=== PATIENT | male | born 1935 | race African-American/Black ===

== ENCOUNTER 2021-02-10 16:36 | Inpatient (IN) | payer MEDICARE ==
[~2021-02-10] VITALS: Ht 185.4 cm; Wt 85.8 kg
--- NOTE | 2021-02-10 16:50 | PHYS DOC ---
Past Medical History Past Medical History: Dementia, Hypertension General Adult HPI: HPI: Patient is a 85 year old man with history of dementia, multiple myeloma 20 years ago presenting to the ED today by EMS. Patient's came to the ED a few minutes later, she states patient was using the bathroom this morning, he fell down. Nobody witnessed the fall. was unable to get him off the floor. He called EMS who were able to get patient off the floor. Patient continued with his day but he was confused more than normal. states patient was talking to himself more than normal. Review of Systems: Review of Systems: Constitutional: Denies fever or chills. [] Eyes: Denies change in visual acuity. [] HENT: Denies nasal congestion or sore throat. [] Respiratory: Denies cough or shortness of breath. [] Cardiovascular: Denies chest pain or edema. [] GI: Denies abdominal pain, nausea, vomiting, bloody stools or diarrhea. [] : Denies dysuria. [] Musculoskeletal: Denies back pain or joint pain. [] Integument: Denies rash. [] Neurologic: reports patient is more confused and had a syncope episode denies headache, focal weakness or sensory changes. [] Psychiatric: Denies depression or anxiety. [] Above from EMS and Heart Score: C/O Chest Pain: N/A Risk Factors: Risk Factors: DM, Current or recent (<one month) smoker, HTN, HLP, family history of CAD, obesity. Risk Scores: Score 0 - 3: 2.5% MACE over next 6 weeks - Discharge Home Score 4 - 6: 20.3% MACE over next 6 weeks - Admit for Clinical Observation Score 7 - 10: 72.7% MACE over next 6 weeks - Early Invasive Strategies Physical Exam: PE: Constitutional: Well developed, well nourished, no acute distress, non-toxic appearance. [] HENT: Normocephalic, atraumatic, bilateral external ears normal, oropharynx moist, no oral exudates, nose normal. [] Eyes: PERRLA, EOMI, conjunctiva normal, no discharge. [] Neck: Normal range of motion, no tenderness, supple, no stridor. [] Cardiovascular:Heart rate regular rhythm, no murmur [] Lungs & Thorax: Bilateral breath sounds clear to auscultation [] Abdomen: Bowel sounds normal, soft, no tenderness, no masses, no pulsatile masses. [] Skin: Warm, dry, no erythema, no rash. [] Back: No tenderness, no CVA tenderness. [] Extremities: No tenderness, no cyanosis, no clubbing, ROM intact, no edema. [] Neurologic: Alert and oriented X 1, normal motor function, normal sensory function, no focal deficits noted. Cranial nerves II through XII intact Psychologic: Affect normal, judgement normal, mood normal. [] EKG: EK interpreted by Dr. Jordan sinus rhythm heart rate 67 no STEMI Radiology/Procedures: Radiology/Procedures: []PROCEDURE: CT HEAD AND CERVICAL SPINE WO Exam: CT head and cervical spine INDICATION: Altered mental status, fall TECHNIQUE: Sequential axial images through the head and cervical spine were obtained without the administration of IV contrast. Exposure: One or more of the following in the visualized dose reduction techniques were utilized for this examination: 1. Automated exposure control 2. Adjustment of the MA and/or KV according to patient size 3. Use of iterative of reconstructive technique Comparisons: None FINDINGS: Head: No focal parenchymal lesion or hemorrhage is identified. There is no midline shift or sulcal effacement. Mild patchy hypodensity in the periventricular white matter. No acute vascular territory infarction is identified. Lees-white distinction is preserved. The ventricular system is within normal limits without compression hydrocephalus. The basal cisterns are well maintained. The visualized portions of the paranasal sinuses and mastoid air cells are well- pneumatized. No acute fractures. Cervical spine: Vertebral body heights and alignment are well-maintained. Fracture to the cervical spine is not identified. Multilevel spondylotic change in cervical spine with degenerative disc disease greatest at C4-C5, C5-C6 and C6-C7. Mild bilateral facet arthropathy is also noted in the cervical spine. Visualized paraspinal soft tissues are unremarkable. IMPRESSION: 1. Mild small vessel schema change, technically age indeterminate without recent prior imaging. 2. Negative CT C-spine for acute traumatic injury Electronically signed by: Anderson Wood MD (02/10/2021 5:32 PM) [facility] DICTATED and SIGNED BY: ANDERSON WOOD MD DATE: 02/10/21 [id number] PROCEDURE: PORTABLE CHEST 1V XR CHEST 1V Clinical History: Reason: AMS / Spl. Instructions: / History: Technique: AP view of the chest was obtained at 02/10/2021 5:16 PM. Comparison: None. Findings: The cardiomediastinal silhouette is normal. The pulmonary vasculature is normal. Minimal reticular opacities throughout the lungs is likely chronic pulmonary fibrosis. Impression: No evidence of an acute cardiopulmonary process. Electronically signed by: Paolo Arnett III, MD (02/10/2021 5:18 PM) [facility] DICTATED and SIGNED BY: PAOLO ARNETT III, MD DATE: 02/10/21 [id number] 0 Course & Med Decision Making: Course & Med Decision Making Pertinent Labs and Imaging studies reviewed. (See chart for details) This is a 85-year-old female patient presenting to the ED today by EMS to be evaluated for increased confusion and a fall earlier today. Vitals on arrival to the ED temperature 102.5, heart rate 67, respiration 12 on room air, blood pressure 159/74, O2 sats 98%. CBC with a normal WBC, hemoglobin 10.5 with hematocrit of 30.9. Platelet count 129. CMP with potassium of 2.5. Patient was given oral potassium replacement as well as IV potassium. BNP 4062. Unknown history of CHF. Spoke with Dr. Castellon who accepted patient for admission Desiree Disclaimer: Desiree Disclaimer: This electronic medical record was generated, in whole or in part, using a voice recognition dictation system. Departure Departure Impression: Primary Impression: Altered mental status Qualified Codes: R41.82 - Altered mental status, unspecified Additional Impressions: Fall Qualified Codes: W19.XXXA - Unspecified fall, initial encounter Hypokalemia Anemia Qualified Codes: D64.9 - Anemia, unspecified Fever Qualified Codes: R50.9 - Fever, unspecified Person under investigation for COVID-19 Disposition: ADMITTED INPATIENT Condition: STABLE JIMMYJULIÁN Layton [employer] FACULT[employer] MEMBER Feb 10, 2021 16:50
--- NOTE | 2021-02-10 17:21 | RAD ---
XR CHEST 1V Clinical History: Reason: AMS / Spl. Instructions: / History: Technique: AP view of the chest was obtained at 02/10/2021 5:16 PM. Comparison: None. Findings: The cardiomediastinal silhouette is normal. The pulmonary vasculature is normal. Minimal reticular op acities throughout the lungs is likely chronic pulmonary fibrosis. Impression: No evidence of an acute cardiopulmonary process. Electronically signed by: Jairo Wilde III, MD (02/10/2021 5:18 PM) [facility]
--- NOTE | 2021-02-10 17:35 | RAD ---
Exam: CT head and cervical spine INDICATION: Altered mental status, fall TECHNIQUE: Sequential axial images through the head and cervical spine were obtained without the admi nistration of IV contrast. Exposure: One or more of the following in the visualized dose reduction techniques were utilized for this examination: 1. Automated exposure control 2. Adjustment of the MA and/or KV according to patient size 3. Use of iterative of reconstructive technique Comparisons: None FINDINGS: Head: No focal parenchymal lesion or hemorrhage is identified. There is no midline shift or sulcal effaceme nt. Mild patchy hypodensity in the periventricular white matter. No acute vascular territory infarction i s identified. Lees-white distinction is preserved. The ventricular system is within normal limits without compression hydrocephalus. The basal cisterns are well maintained. The visualized portions of the paranasal sinuses and mastoid air cells are well-pneumatized. No acute fractures. Cervical spine: Vertebral body heights and alignment are well-maintained. Fracture to the cervical spine is not identified. Multilevel spondylotic change in cervical spine with degenerative disc disease greatest at C4-C5, C5- C6 and C6-C7. Mild bilateral facet arthropathy is also noted in the cervical spine. Visualized paraspinal soft tissues are unremarkable. IMPRESSION: 1. Mild small vessel schema change, technically age indeterminate without recent prior imaging. 2. Negative CT C-spine for acute traumatic injury Electronically signed by: Anderson Long MD (02/10/2021 5:32 PM) [facility]
[2021-02-10 17:43] LABS: BASO % 0 % (0-3); EOS % 0 % (0-3); HEMATOCRIT 30.9 % (39.0-53.0); HEMOGLOBIN 10.5 g/dL (13.0-17.5); LYMPH # 0.4 x10^3/uL (1.0-4.8); LYMPH % 7 % (24-48); MEAN CORPUSCULAR HEMOGLOBIN 32 pg (25-35); MEAN CORPUSCULAR HGB CONC 34 g/dL (31-37); MEAN CORPUSCULAR VOLUME 94 fL (79-100); MONO # 0.6 x10^3/uL (0.0-1.1); MONO % 10 % (0-9); NEUT # 5.5 x10^3/uL (1.8-7.7); NEUT % 83 % (31-73); PLATELET COUNT 129 x10^3/uL (140-400); RED CELL DISTRIBUTION WIDTH 14.8 % (11.5-14.5); WHITE BLOOD COUNT 6.6 x10^3/uL (4.0-11.0)
[2021-02-10 17:58] LABS: ALBUMIN/GLOBULIN RATIO 0.8 (1.0-1.7); CALCIUM 8.5 mg/dL (8.5-10.1); CREATININE 1.1 mg/dL (0.7-1.3); GFR 77.2; MAGNESIUM 1.7 mg/dL (1.8-2.4); TOTAL BILIRUBIN 0.9 mg/dL (0.2-1.0); TOTAL PROTEIN 6.6 g/dL (6.4-8.2)
[2021-02-10 18:04] LABS: POTASSIUM 2.5 mmol/L (3.5-5.1)
--- NOTE | 2021-02-10 18:15 | EKG ---
[facility] [address] [place] [address] Test Date: 2021-02-10 Test Time: 17:16:25 Pat Name: LINDA CRUZ Department: Room: Gender: M Senior Clinical Data Manager: : 1935 Requested By: JULIÁN MARQUEZ Order Number: [id number] Reading MD: Measurements Intervals [place] Rate: 67 P: CT: QRS: 50 QRSD: 84 T: 82 QT: 366 QTc: 389 Interpretive Statements IRREGULAR RHYTHM, NO P-WAVE FOUND T ABNORMALITY IN ANTERIOR LEADS ABNORMAL ECG RI6.02 No previous ECG available for comparison
--- NOTE | 2021-02-10 18:21 | PDOC1 ---
History and Physical Date of Service: DOS: DATE: 02/10/21 TIME: 18:18 Chief Complaint: Chief Complain: AMS and Fall History of Present Illness: HPI: History obtained from discussion with the ED physician, , and chart review: 85 year old man with history of dementia, multiple myeloma 20 years ago presenting to the ED today by EMS. states she was at home when she hear a loud sound coming from the bathroom and found the patient holding onto a chair and looked like in a daze. Nobody witnessed the fall. was unable to get him off the floor. He called EMS who were able to get patient off the floor. Patient continued with his day but he was confused more than normal. states patient was talking to himself more than normal. Patient has dementia and is very pleasant and only states he wants to go home. Patient lives at home with and they do not have any help. Past Medical/Surgical History: PMH/PSH: Past Medical History: Dementia, Hypertension, Multiple myeloma Allergies: Allergies: Coded Allergies: No Known Drug Allergies (Unverified , 02/10/21) Family History: Family History: Reviewed with no relevant findings Social History: Social History: No history of alcohol, smoking or drug abuse Current Medications: Current Medications Pending medication reconciliation ROS: Review of Systems Review of System Unable to obtain due to dementia and altered mental status. Physical Exam: Physcial Exam: General: Well developed, well nourished, no acute distress, well appearing HEENT: Pupils equally round and reactive to light, EOMI, no discharge, normal conjunctiva Neck: Supple, no nuchal rigidity, no JVD, trachea midline, no tenderness Cardiac: RRR, no murmurs, no gallops, no rubs Chest/Lungs: CTAB, no wheeze, no rhonchi, no crackles Abdomen: soft, non-distended, no guarding, no peritoneal signs, non-tender Back: No tenderness Extremities: no edema, pulses intact, non-tender,capillary refill <3 sec bilat eral upper and lower extremities, Neuro: Alert and oriented X 1, normal motor function, normal sensory function, no focal deficits noted. Labs: Labs: Laboratory Tests Test 02/10/21 17:32 White Blood Count 6.6 x10^3/uL (4.0-11.0) Red Blood Count 3.30 x10^6/uL (4.30-5.70) Hemoglobin 10.5 g/dL (13.0-17.5) Hematocrit 30.9 % (39.0-53.0) Mean Corpuscular Volume 94 fL (79-100) Mean Corpuscular Hemoglobin 32 pg (25-35) Mean Corpuscular Hemoglobin Concent 34 g/dL (31-37) Red Cell Distribution Width 14.8 % (11.5-14.5) Platelet Count 129 x10^3/uL (140-400) Neutrophils (%) (Auto) 83 % (31-73) Lymphocytes (%) (Auto) 7 % (24-48) Monocytes (%) (Auto) 10 % (0-9) Eosinophils (%) (Auto) 0 % (0-3) Basophils (%) (Auto) 0 % (0-3) Neutrophils # (Auto) 5.5 x10^3/uL (1.8-7.7) Lymphocytes # (Auto) 0.4 x10^3/uL (1.0-4.8) Monocytes # (Auto) 0.6 x10^3/uL (0.0-1.1) Eosinophils # (Auto) 0.0 x10^3/uL (0.0-0.7) Basophils # (Auto) 0.0 x10^3/uL (0.0-0.2) Sodium Level 142 mmol/L (136-145) Potassium Level 2.5 mmol/L (3.5-5.1) Chloride Level 100 mmol/L (98-107) Carbon Dioxide Level 32 mmol/L (21-32) Anion Gap 10 (6-14) Blood Urea Nitrogen 9 mg/dL (8-26) Creatinine 1.1 mg/dL (0.7-1.3) Estimated GFR (Cockcroft-Gault) 77.2 BUN/Creatinine Ratio 8 (6-20) Glucose Level 181 mg/dL (70-99) Calcium Level 8.5 mg/dL (8.5-10.1) Magnesium Level 1.7 mg/dL (1.8-2.4) Total Bilirubin 0.9 mg/dL (0.2-1.0) Aspartate Amino Transf (AST/SGOT) 13 U/L (15-37) Alanine Aminotransferase (ALT/SGPT) 15 U/L (16-63) Alkaline Phosphatase 58 U/L (46-116) Troponin I Quantitative < 0.017 ng/mL (0.000-0.055) IQ-Pcr-N-Type Natriuretic Peptide 4062 pg/mL (0-449) Total Protein 6.6 g/dL (6.4-8.2) Albumin 3.0 g/dL (3.4-5.0) Albumin/Globulin Ratio 0.8 (1.0-1.7) Thyroid Stimulating Hormone (TSH) 0.564 uIU/mL (0.358-3.74) Laboratory Tests Test 02/10/21 17:32 White Blood Count 6.6 x10^3/uL (4.0-11.0) Red Blood Count 3.30 x10^6/uL (4.30-5.70) Hemoglobin 10.5 g/dL (13.0-17.5) Hematocrit 30.9 % (39.0-53.0) Mean Corpuscular Volume 94 fL (79-100) Mean Corpuscular Hemoglobin 32 pg (25-35) Mean Corpuscular Hemoglobin Concent 34 g/dL (31-37) Red Cell Distribution Width 14.8 % (11.5-14.5) Platelet Count 129 x10^3/uL (140-400) Neutrophils (%) (Auto) 83 % (31-73) Lymphocytes (%) (Auto) 7 % (24-48) Monocytes (%) (Auto) 10 % (0-9) Eosinophils (%) (Auto) 0 % (0-3) Basophils (%) (Auto) 0 % (0-3) Neutrophils # (Auto) 5.5 x10^3/uL (1.8-7.7) Lymphocytes # (Auto) 0.4 x10^3/uL (1.0-4.8) Monocytes # (Auto) 0.6 x10^3/uL (0.0-1.1) Eosinophils # (Auto) 0.0 x10^3/uL (0.0-0.7) Basophils # (Auto) 0.0 x10^3/uL (0.0-0.2) Sodium Level 142 mmol/L (136-145) Potassium Level 2.5 mmol/L (3.5-5.1) Chloride Level 100 mmol/L (98-107) Carbon Dioxide Level 32 mmol/L (21-32) Anion Gap 10 (6-14) Blood Urea Nitrogen 9 mg/dL (8-26) Creatinine 1.1 mg/dL (0.7-1.3) Estimated GFR (Cockcroft-Gault) 77.2 BUN/Creatinine Ratio 8 (6-20) Glucose Level 181 mg/dL (70-99) Calcium Level 8.5 mg/dL (8.5-10.1) Magnesium Level 1.7 mg/dL (1.8-2.4) Total Bilirubin 0.9 mg/dL (0.2-1.0) Aspartate Amino Transf (AST/SGOT) 13 U/L (15-37) Alanine Aminotransferase (ALT/SGPT) 15 U/L (16-63) Alkaline Phosphatase 58 U/L (46-116) Troponin I Quantitative < 0.017 ng/mL (0.000-0.055) YS-Rwl-Y-Type Natriuretic Peptide 4062 pg/mL (0-449) Total Protein 6.6 g/dL (6.4-8.2) Albumin 3.0 g/dL (3.4-5.0) Albumin/Globulin Ratio 0.8 (1.0-1.7) Thyroid Stimulating Hormone (TSH) 0.564 uIU/mL (0.358-3.74) Images: Images PROCEDURE: CT HEAD AND CERVICAL SPINE WO IMPRESSION: 1. Mild small vessel schema change, technically age indeterminate without recent prior imaging. 2. Negative CT C-spine for acute traumatic injury PROCEDURE: PORTABLE CHEST 1V XR CHEST 1V Clinical History: Reason: AMS / Spl. Instructions: / History: Technique: AP view of the chest was obtained at 02/10/2021 5:16 PM. Comparison: None. Findings: The cardiomediastinal silhouette is normal. The pulmonary vasculature is normal. Minimal reticular opacities throughout the lungs is likely chronic pulmonary fibrosis. Impression: No evidence of an acute cardiopulmonary process. Assessment/Plan Assessment/Plan Acute metabolic encephalopathy Severe hypokalemia Hypomagnesemia Elevated BNP Moderate protein malnutrition Anemia of chronic disease Mild thrombocytopenia History of multiple myeloma History of hypertension History of dementia Admit to hospitalist services of further management IV electrolyte replacement PT/OT modalities Continue IVF SW consult Cardiology consult for possible CHF Lovenox for DVT prophylaxis FULL code DPOA: Critical care time 45 minutes Justifications for Admission Other Justification JASON VERA MD Feb 10, 2021 18:21
[2021-02-10] MEDS ORDERED: IV NORMAL SALINE 1000ML BAG 1,000 ML IV ONE ×2 (19:00)
[2021-02-10] MEDS ORDERED: POTASSIUM BICARB 20 MEQ EFFERVESCENT TABLET. PEG ONE (19:00)
[2021-02-10] MEDS ORDERED: POTASSIUM CHLORIDE 20MEQ 100 ML IV ONE (19:00)
[2021-02-10] MEDS ORDERED: ACETAMINOPHEN 325 MG TABLET. PO PRN ×2 (19:15→21:00)
[2021-02-10] MEDS ORDERED: fentaNYL PF VIAL 100 MCG/2 ML VIAL IVP PRN (19:15)
[2021-02-10] MEDS ORDERED: ONDANSETRON PF 4 MG/2 ML VIAL. IVP PRN ×2 (19:15→21:00)
[2021-02-10] MEDS ORDERED: ACETAMINOPHEN 500 MG TABLET PO ONE (19:30)
[2021-02-10 20:00] LABS: INFLUENZA A PATIENT NEGATIVE (NEGATIVE); INFLUENZA B PATIENT NEGATIVE (NEGATIVE)
[2021-02-10 21:00] VITALS: BP 168/75
[2021-02-10] MEDS ORDERED: PROCHLORPERAZINE 10 MG/2 ML VIAL. IV PRN (21:00)
[2021-02-10] MEDS ORDERED: DEXTROSE 50% 25 GM / 50ML DISP.SYRIN. IV PRN (21:00)
[2021-02-10] MEDS ORDERED: SENNOSIDES 8.6 MG TABLET PO PRN (21:00)
[2021-02-10] MEDS ORDERED: DOCUSATE SODIUM 100 MG CAPSULE. PO PRN (21:00)
[2021-02-10] MEDS ORDERED: ENOXAPARIN 40 MG/0.4 ML SYRINGE. SQ SCH (21:00)
[2021-02-10 22:51] VITALS: BP 122/58
[2021-02-10] MEDS: IV NORMAL SALINE 1000ML BAG 1,000 ML IV SCH (23:15)
[2021-02-11 02:39] VITALS: BP 160/69
[2021-02-11] MEDS: IV NORMAL SALINE 1000ML BAG 1,000 ML IV SCH (05:18)
[2021-02-11 05:47] LABS: BASO % 0 % (0-3); EOS # 0.1 x10^3/uL (0.0-0.7); EOS % 2 % (0-3); HEMOGLOBIN 9.5 g/dL (13.0-17.5); LYMPH # 1.8 x10^3/uL (1.0-4.8); LYMPH % 28 % (24-48); MEAN CORPUSCULAR HEMOGLOBIN 32 pg (25-35); MEAN CORPUSCULAR HGB CONC 34 g/dL (31-37); MEAN CORPUSCULAR VOLUME 94 fL (79-100); MONO # 0.7 x10^3/uL (0.0-1.1); MONO % 11 % (0-9); NEUT # 3.8 x10^3/uL (1.8-7.7); NEUT % 59 % (31-73); PLATELET COUNT 115 x10^3/uL (140-400); RED BLOOD COUNT 2.97 x10^6/uL (4.30-5.70); RED CELL DISTRIBUTION WIDTH 14.7 % (11.5-14.5); WHITE BLOOD COUNT 6.4 x10^3/uL (4.0-11.0)
[2021-02-11 05:57] LABS: ALBUMIN 2.6 g/dL (3.4-5.0); ALBUMIN/GLOBULIN RATIO 0.7 (1.0-1.7); CALCIUM 8.1 mg/dL (8.5-10.1); GFR 86.1; MAGNESIUM 1.7 mg/dL (1.8-2.4); PHOSPHORUS 2.7 mg/dL (2.6-4.7); TOTAL BILIRUBIN 0.8 mg/dL (0.2-1.0); TOTAL PROTEIN 6.4 g/dL (6.4-8.2)
[2021-02-11 06:03] LABS: POTASSIUM 2.9 mmol/L (3.5-5.1)
[2021-02-11 07:00] VITALS: BP 187/85
[2021-02-11] MEDS: POTASSIUM CHLORIDE 20 MEQ TABLET.ER. PO SCH ×3 (07:30→10:00)
[2021-02-11] MEDS ORDERED: hydrALAZINE 20 MG/ML VIAL. IVP PRN (09:45)
[2021-02-11] MEDS ORDERED: MAGNESIUM OXIDE 400 MG TABLET PO ONE (10:00)
[2021-02-11] MEDS ORDERED: MAGNESIUM SULFATE 2GM 50 ML IV ONE (10:00)
--- NOTE | 2021-02-11 10:07 | NUR ---
at bedside and visibly upset. Stating "they took all the test yesterday, I don't understand why he can't go home". stating "he is very angry and would like to leave". Pt sitting in bed and cooperative prior to coming to visit. Pt now out of bed, dressed in street clothing, and demanding to leave. Physician at bedside along with this nurse. states "call his primary doctor at and he will tell you what he wants to do". It was explained by physician and this nurse that patient is hospitalized at [facility] and Dr. Coleman is in charge of his care while here. demanding to leave. requesting to not have any other physician involved in patient care. Cardiology consult and all orders placed by cardiology were cancelled. agreeable to replace patient potassium and magnesium PO and to be discharged.
[2021-02-11] MEDS ORDERED: AMLO2.5T5 PO (10:13)
[2021-02-11] MEDS ORDERED: POTA-121 PO (10:13)
[2021-02-11] MEDS ORDERED: CALC0.5C8 PO (10:13)
[2021-02-11] MEDS ORDERED: DONE5TAB7 PO (10:13)
[2021-02-11] MEDS ORDERED: ATOR40TA59 PO (10:13)
[2021-02-11] MEDS ORDERED: ESCITALOPRAM OX10 MG PO (10:13)
[2021-02-11] MEDS ORDERED: MULT-252 PO (10:13)
[2021-02-11] MEDS ORDERED: METO50TA4 PO (10:13)
--- NOTE | 2021-02-11 10:55 | SNU/HH DC ---
DISCHARGE WITH HOME HEALTH DISCHARGE INFORMATION: Final Diagnosis: Problems Medical Problems: (1) Altered mental status Status: Acute (2) Anemia Status: Acute (3) Fall Status: Acute (4) Fever Status: Acute (5) Hypokalemia Status: Acute (6) Person under investigation for COVID-19 Status: Acute Condition on Discharge: Stable CODE STATUS: Code Status: Full HOME HEALTH: Face to Face: I certify this patient is under my care and that I, or a nurse practitioner or physician's distribution center assistant working with me, had a face to face encounter that meets the physician face to face encounter requirements with this patient on []. Medical Complications: Dementia Chcf For: Assess Cardiopulm Status RN For Eval/Treatment: Yes Physical Therapy For: Evalulation/Treatment Occupational Therapy For: Evaluation/Treatment Home Health Aide For: Self-care SOCK LINING STITCHER For: Community Resources Pt Meets Homebound Status: Poor coordination w/ amb. POST DISCHARGE ORDERS: DIET AFTER DISCHARGE: Cardiac CERTIFICATION STATEMENT: Certification Statement: Certification Statement: Based on the above finding, I certify that this patient is confined to the home and needs intermittent longterm care, physical therapy and/or speech therapy, or continues to need occupational therapy.~ This patient is under my care, and I have initiated the establishment of the plan of care.~ This patient will be followed by myself or a community physician who will periodically review the plan of care. Home Meds Reported Medications Multivits-Minerals/Fa/Lycopene (ONE DAILY [employer] HE[employer] TABLET) 1 Each Tablet, 1 TAB PO DAILY for replacement for 30 Days, #30 TAB 0 Refills 02/11/21 Escitalopram Oxalate (ESCITALOPRAM OXALATE) 10 Mg Tablet, 10 TAB PO DAILY for hm-med for 30 Days, #300 TAB 3 Refills 02/11/21 Amlodipine Besylate (AMLODIPINE BESYLATE) 2.5 Mg Tablet, 2.5 MG PO DAILY for cardiac, TAB 02/11/21 Donepezil Hcl (DONEPEZIL HCL) 5 Mg Tablet, 1 TAB PO DAILY for dementia, #30 TAB 5 Refills 02/11/21 Metoprolol Succinate (Toprol XL) 50 Mg Tab.er.24h, 25 MG PO DAILY for FOR HYPERTENSION, TAB.SR 02/11/21 Calcitriol (CALCITRIOL) 0.5 Mcg Capsule, 1 CAP PO DAILY for replacement, #90 CAP 1 Refill 02/11/21 Potassium Chloride (KLOR-CON M20) 20 Meq Tab.er.prt, 2 TAB PO DAILY for replacement for 30 Days, #60 TAB 0 Refills 02/11/21 Atorvastatin Calcium (ATORVASTATIN CALCIUM) 40 Mg Tablet, 1 TAB PO DAILY for cardiac, #30 TAB 5 Refills 02/11/21 ZHOU EMERSON III DO Feb 11, 2021 10:55
--- NOTE | 2021-02-11 11:00 | NUR ---
SS following for discharge planning. SS reviewed pt chart and discussed with pt RN. Pt is from home with spouse and is currently on room air. COVID19 negative. Pt's family requesting discharge to home with home healthcare. Discharge orders received for home healthcare. Pt's family requested no preference of company. Discharge orders and referral phoned and faxed to [facility], ; fax [phone]. Pt's family requested list of private duty companies. SS provided list of companies to pt's family. Pt's RN notified.
--- NOTE | 2021-02-11 11:44 | NUR ---
Discharge Note: TONYA CRUZ [facility] Discharge instructions and discharge home medications reviewed with Patient and a copy given. All questions have been answered and understanding verbalized. PT at bedside for DC and verbalized understanding. Pt to go home with home health. No medication changes.
--- NOTE | 2021-02-11 14:00 | DS ---
DATE OF DISCHARGE: 02/11/2021 ADMITTING DIAGNOSES: Fall, dementia, hypokalemia. DISCHARGE DIAGNOSES: Resolving falls, resolving hypokalemia, dementia. HOSPITAL COURSE: The patient is a pleasant 85-year-old male who fell. His brought him to the ER for evaluation, he was noted to be hypokalemic. We admitted the patient, replaced his electrolytes. Today, I saw and examined him, he is at his baseline and wants to go home. His family really wants to take him home with discharge with close outpatient followup. DISPOSITION: Home. ACTIVITY: As tolerated. DIET: Low sodium. DISCHARGE MEDICATIONS: Please see MRAD. TOTAL TIME: [address]: Cristhian TID: [id number]
== END 2021-02-11 11:05 | disposition home health service (06) | DRG 640 ==
LOC: ER 16:36 → EDBD 16:36 → 6 SOUTH 18:49
PROVIDERS: ADMIT Internal Medicine; ATTEND Internal Medicine
DX: E87.6 Hypokalemia (principal); G93.41 Metabolic encephalopathy; E44.0 Moderate protein-calorie malnutrition; D63.8 Anemia in other chronic diseases classified elsewhere; D69.6 Thrombocytopenia, unspecified; E83.42 Hypomagnesemia; F03.90 Unspecified dementia, unspecified severity, without behavioral disturbance, psychotic disturbance, mood disturbance, and anxiety; I10 Essential (primary) hypertension; Z20.822 Contact with and (suspected) exposure to COVID-19; Z68.25 Body mass index [BMI] 25.0-25.9, adult; W18.39XA Other fall on same level, initial encounter; Y93.89 Activity, other specified; Y92.89 Other specified places as the place of occurrence of the external cause; Y99.8 Other external cause status; R50.9 Fever, unspecified
CPT/HCPCS: 36415; 70450; 71045; 72125; 80053; 83735; 83880; 84100; 84443; 84484; 85025; 87040; 87426; 87804; 93005; 96361; 96374; J1650; J3480; J7030; U0003; U0005; 99285-25; G0378